=== PATIENT | male | born 1950 | race Caucasian/White ===

== ENCOUNTER 2023-09-15 08:31 | Day surgery (SDC) | payer MEDICARE ==
[~2023-09-15 08:31] MED LIST: ALPRAZolam 0.25 MG TAB PO PRN; ALPRAZolam 0.5 MG TAB PO PRN; ASPIRIN 325 MG TAB PO STA; HEPARIN SODIUM,PORCINE (1 ML) 2,500 UNIT in SODIUM CHLORIDE 0.9% 250 ML IRRIGATION PRN; HEPARIN SODIUM,PORCINE 10,000 UNIT in SODIUM CHLORIDE 0.9% 1,000 ML IRRIGATION PRN; NITROGLYCERIN SL TABS 0.4 MG TAB SUBLINGUAL PRN; SODIUM CHLORIDE 0.9% 1,000 ML in EMPTY BAG 1 BAG IV SCH
[2023-09-15] MEDS: SODIUM CHLORIDE 0.9% 1,000 ML IV ONE (08:49)
[2023-09-15 09:02] VITALS: RESP 16; TEMP 98
[2023-09-15 09:21] LABS: Basophils # (A) 0.1 k/uL (0-0.2); Basophils % (A) 1 %; Eosinophils % (A) 11 %; HCT 50.7 % (39.0-53.0); HGB 16.7 gm/dL (13.0-17.5); Lymphocytes # (A) 3.1 k/uL (1.0-4.8); Lymphocytes % (A) 32 %; MCH 30.5 pg (25.0-35.0); MCHC 32.9 g/dL (31.0-37.0); MCV 92.7 fL (80.0-100.0); Mean Platelet Volume 8.3; Monocytes # (A) 0.6 k/uL (0-1.0); Monocytes % (A) 6 %; Neutrophils # (A) 4.6 k/uL (1.3-7.7); Neutrophils % (A) 48 %; Platelet Count 242 k/uL (150-450); RBC 5.47 m/uL (4.30-5.90); RDW 12.8 % (11.5-15.5); WBC 9.7 k/uL (3.8-10.6)
[2023-09-15 09:50] LABS: African American GFR (CKD) >90 (>60 ml/min/1.73 sqM); Anion Gap 7 mmol/L; Blood Urea Nitrogen 21 mg/dL (9-20); Calcium 9.2 mg/dL (8.4-10.2); Carbon Dioxide 25 mmol/L (22-30); Chloride 109 mmol/L (98-107); Glucose 98 mg/dL (74-99); Non-African American GFR(CKD) 86 (>60 ml/min/1.73 sqM); Sodium 141 mmol/L (137-145)
[2023-09-15] MEDS ORDERED: VERAPAMIL 2.5 MG/ML 2 ML AMP ONE (10:00)
[2023-09-15] MEDS ORDERED: LIDOCAINE 1% INJ 10MG/ML (20 ML MDV) ONE (10:01)
[2023-09-15] MEDS ORDERED: fentaNYL (PF) 50 MCG/ML 2 ML AMP ONE (10:51)
[2023-09-15] MEDS ORDERED: HEPARIN SODIUM 1,000 UN/ML (10ML VL) ONE (10:55)
[2023-09-15] MEDS: LIDOCAINE 1% INJ 10MG/ML (20 ML MDV) SQ ONE (11:07)
[2023-09-15] MEDS: MIDAZOLAM 2 MG/2 ML VIAL IVP ONE (11:07)
[2023-09-15] MEDS: fentaNYL (PF) 50 MCG/ML 2 ML AMP IVP ONE (11:07)
[2023-09-15] MEDS: VERAPAMIL SYRINGE (5 MG/10 ML) INTRAARTER ONE (11:09)
[2023-09-15] MEDS: HEPARIN SODIUM 1,000 UN/ML (10ML VL) IVP ONE ×3 (11:10→11:47)
[2023-09-15] MEDS ORDERED: CLOPIDOGREL 75 MG TAB ONE (11:39)
[2023-09-15] MEDS: CLOPIDOGREL 75 MG TAB PO ONE (11:43)
[2023-09-15] MEDS: IOPAMIDOL-370 100ML BTL INJ ONE ×2 (11:55→11:56)
[2023-09-15] MEDS ORDERED: ATROPINE SULFATE 0.1 MG/ML 10ML SYRINGE IV PRN (13:36)
[2023-09-15] MEDS ORDERED: ZOLPIDEM 5 MG TAB PO PRN (13:36)
[2023-09-15] MEDS ORDERED: RX INFO: IV CONTRAST WAS GIVEN 1 EACH MISC MISCELLANE PRN (13:36)
[2023-09-15] MEDS ORDERED: MAG HYDROX/AL HYDROX/SIMETH 30 ML CUP PO PRN (13:36)
[2023-09-15 17:32] VITALS: BP 149/75; PULSE 57
[2023-09-15] MEDS ORDERED: APIXABAN 5 MG TAB PO SCH (21:00)
[2023-09-15] MEDS ORDERED: ATORVASTATIN 80 MG TAB PO SCH (21:00)
[2023-09-15] MEDS ORDERED: lisinopriL 20 MG TAB PO SCH (21:00)
--- NOTE | 2023-09-15 22:31 | P.PRCINT ---
Percutaneous Coronary Int. - Percutaneous Coronary Intervention Percutaneous Coronary Intervention: PROCEDURES PERFORMED: Left heart catheterization, bilateral coronary angiography, ultrasound guided arterial access, , iFR LAD, iFR RCA, PCI distal LAD with a 2.25 x 12mm Xience ANOOP INDICATION: Abnormal stress test, dyspnea on exertion as well as jaw discomfort with exertion NYHA class 3 symptoms CONSENT:I have discussed the risks, benefits and alternative therapies for the above-mentioned procedure and for both sedation/analgesia as well as necessary blood product administration, if indicated, as they pertain to this patient. The patient has indicated understanding and acceptance of the risks and procedures discussed. PROCEDURE: After the risks, benefits and alternatives of the above mentioned procedure explained in detail with the patient, informed consent was obtained. Patient was taken to the catheterization lab and prepped and draped in usual fashion. Ultrasound guidance was used to assess for arterial access. 1% lidocaine was used to anesthetize the right radial artery. A 6-Yemeni sheath was placed in the right radial artery using modified Seldinger technique and ultrasound guidance. Left coronary angiography was performed with a 5-Yemeni JL 3.5 catheter and right coronary angiography was performed with a 5-Yemeni FR5 catheter in various views. A 5-Yemeni FR5 catheter was inserted into the left ventricle and pressure measurements were obtained. The decision was made to perform iFR of the RCA and LAD. Heparin was given. Using the FR5 and FL 3.5 catheters a 0.014 pressure wire was advanced and then normalized. The wire was then advanced 1 cm distal to the LAD and RCA lesions. iFR of the LAD was abnormal at 0.84 and the RCA/ PLV was normal at 0.98. Majority of the discrepancy of the LAD was at the distal lesion and the mid lesion did not seem as significant. Next the decision was made to perform PCI of the LAD. A 6FR CLS 3.5 guide was used to engage the left main. A 0.014 BMW wire was advanced into the distal LAD. Next predialtion was performed with a 2.0mm balloon. Next a 2.25 x 12mm Xience ANOOP was advanced and deployed at the distal LAD lesion. The stent was post dilated with a 2.25mm NC balloon. Final angiograms were performed. Preintervention there was a 80% distal LAD stenosis and post intervention there was < 10% stenosis. The right radial sheath was removed and a TR band was placed with hemostasis achieved. The patient tolerated the procedure well. Patient was transported back to the post catheterization holding area in stable condition. Conscious Sedation: Patient was monitored under the direct supervision of myself for conscious sedation using Versed and fentanyl for a total duration of 48 minutes HEMODYNAMICS: Ao: 144/76 LV: 141/9, LVEDP 18mm Hg SELECTIVE CORONARY ARTERIOGRAPHY: LEFT MAIN: The left main is a large caliber vessel which bifurcates into the LAD and circumflex. There is no significant stenosis. LEFT ANTERIOR DESCENDING CORONARY ARTERY: LAD is a large caliber vessel which wraps around to the apex. There is mild 20-30% proximal LAD, a mid LAD 50% stenosis and a distal LAD 80% stenosis. LEFT CIRCUMFLEX CORONARY ARTERY: Left circumflex is a moderate caliber vessel with mild luminal irregularities. RIGHT CORONARY ARTERY: The right coronary artery is a large caliber vessel which gives off a PDA and PLV branch and is the dominant vessel. There is a proximal RCA 30% stenosis, mid RCA 40-50% stenosis, distal RCA 60% stenosis with PLV 50% stenosis. FINAL IMPRESSION: 1. CAD as described above with mid LAD 50%, distal LAD 80%, distal RCA 60% stenosis 2. S/p PCI distal LAD with a 2.25 x 12mm Xience ANOOP 3. Mildly elevated left sided filling pressures PLAN: 1. Aggressive risk factor modification per most recent ACC/AHA guidelines. 2. Continue antiplatelets with Plavix and Eliquis for 6 months. 3. Medical therapy of RCA given normal iFR
[2023-09-16] MEDS ORDERED: METOPROLOL SUCCINATE (ER) 25 MG TAB.ER.24H PO SCH (09:00)
[2023-09-16] MEDS ORDERED: amLODIPine 10 MG TAB PO SCH (09:00)
[2023-09-16] MEDS ORDERED: CLOPIDOGREL 75 MG TAB PO SCH (09:00)
== END 2023-09-15 17:28 | disposition home or self-care (01) ==
LOC: CATHCVL 08:31
PROVIDERS: ATTEND Internal Medicine
DX: I25.10 Atherosclerotic heart disease of native coronary artery without angina pectoris (principal); Z95.5 Presence of coronary angioplasty implant and graft; Z79.02 Long term (current) use of antithrombotics/antiplatelets; I10 Essential (primary) hypertension; E78.5 Hyperlipidemia, unspecified; F17.290 Nicotine dependence, other tobacco product, uncomplicated; Z79.899 Other long term (current) drug therapy; Z98.890 Other specified postprocedural states
CPT/HCPCS: 93458; 76937; 80048; 85025; C9600; J2250; J2001; J3010; J1644; Q9967